=== PATIENT | female | born 1955 | race Caucasian/White ===

== ENCOUNTER 2017-10-26 15:31 | Outpatient (CLI) | payer BC ==
--- NOTE | 2017-10-27 17:44 | EKG ---
Test Reason : Blood Pressure : / mmHG Vent. Rate : 080 BPM Atrial Rate : 080 BPM P-R Int : 174 ms QRS Dur : 098 ms QT Int : 388 ms P-R-T Axes : 046 -05 020 degrees QTc Int : 447 ms Normal sinus rhythm Minimal voltage criteria for LVH, may be normal variant Borderline ECG When compared with ECG of 20-JAN-2017 11:05, No significant change was found Confirmed by DR. Niya TOLENTINO ([id number]) on 10/27/2017 5:43:42 PM Referred By: PRISCILLA Confirmed By:DR. Niya TOLENTINO
== END 2017-10-26 15:32 | disposition home or self-care (01) ==
LOC: LABBT 15:31
PROVIDERS: ATTEND Neurological Surgery
DX: Z01.812 Encounter for preprocedural laboratory examination (principal); M47.22 Other spondylosis with radiculopathy, cervical region
CPT/HCPCS: 93005; 93010

== ENCOUNTER 2018-02-15 10:53 | Inpatient (IN) | payer BC ==
[2018-02-15 11:20] VITALS: BMI 23.6
[2018-02-15] MEDS ORDERED: HYDROcodone/Acetaminophen 10/325 mg Tablet PO PRN ×2 (11:42→16:58)
[2018-02-15] MEDS ORDERED: Dextrose 5 % And 0.9 % NaCl 1,000 ML IV SCH (11:45)
[2018-02-15 12:38] LABS: ALT (SGPT) 13 U/L (8-55); AST (SGOT) 15 U/L (5-34); Albumin 3.9 g/dL (3.5-5.0); Alkaline Phosphatase 115 U/L (40-150); Anion Gap 12 mmol/L (10-20); BUN (Urea Nitrogen) 7 mg/dL (9.8-20.1); Bilirubin, Total 0.4 mg/dL (0.2-1.2); Calc. Creatinine Clearance 90 mL/min (70-130); Calcium 9.6 mg/dL (7.8-10.44); Carbon Dioxide 24 mmol/L (22-29); Chloride 106 mmol/L (98-107); Estimated GFR-MDRD 80; Globulin 4.5 g/dL (2.4-3.5); Glucose 112 mg/dL (70-105); Protein, Total 8.4 g/dL (6.0-8.3); Sodium 139 mmol/L (136-145)
[2018-02-15 12:59] LABS: #Lymphocytes 1.2 thou/uL (1.20-3.40); #Monocytes 0.2 thou/uL (0.11-0.59); #Neutrophils 10.8 thou/uL (1.40-6.50); %Basophils 0.2 % (0.0-1.0); %Eosinophils 0.1 % (0.0-10.0); %Lymphocytes 9.7 % (21.0-51.0); %Monocytes 1.9 % (0.0-10.0); %Neutrophils 88.2 % (42.0-75.0); Hemoglobin 9.7 g/dL (12.0-16.0); Hypochromia SLIGHT = 6-15 cells (100X) (0-5/hpf); MDiff Complete? YES; Mean Corpuscular HGB CONC 29.3 g/dL (32.0-36.0); Mean Corpuscular Hemoglobin 23.1 pg (27.0-31.0); Mean Corpuscular Volume 79.1 fL (78.0-98.0); Mean Platelet Volume 6.8 fL (7.4-10.4); Microcytosis SLIGHT = 6-15 cells (100X) (0-5/hpf); PLT Morphology Comment Appears Increased; Platelet Count 531 thou/uL (130-400); Polychromasia SLIGHT = 2-3 cells (100X) (0-2/hpf); RBC Distribution Width 17.8 % (11.5-14.5); White Blood Cell (WBC) Count 12.3 thou/uL (4.8-10.8)
[2018-02-15] MEDS: Pregabalin 50 MG CAP PO SCH ×2 (15:01→20:55)
[2018-02-15] MEDS: HYDROcodone/Acetaminophen 10/325 mg Tablet PO PRN ×2 (17:08→21:03)
[2018-02-15] MEDS: D5 NS w/ 40 mEq KCl 1,000 ML IV SCH (20:55)
[2018-02-15] MEDS: Pantoprazole 40 MG VIAL IVP SCH (20:55)
[2018-02-15] MEDS: Promethazine HCl 25 MG/ML VIAL IM/IV PRN (22:25)
[2018-02-16] MEDS: HYDROcodone/Acetaminophen 10/325 mg Tablet PO PRN ×5 (01:43→20:16)
--- NOTE | 2018-02-16 02:18 | HP ---
DATE OF ADMISSION: 02/15/2018 HISTORY OF PRESENT ILLNESS: Patient is a 62-year-old female who has a long history of Croh n's disease. Patient underwent a colonoscopy in 05/2017 for her Crohn's disease. This showed inflam mation from the anal area to the terminal ileum. These are notably worsen from prior colonoscopy, 5 years before. She was seen in June at that time and started on Stelara. She initially seemed t o be doing better, was again seen in July and her pain had resolved. She returned to [place] in [place] again nausea and vomiting with pain in the stomach and rectum having 4 bowel movements per day. She was having a large amount of blood and clots. She underwent a laboratory and a CT in October of is year. It appears that has not been performed. She was started on steroids as an outpatient and h er azathioprine, which has been stopped for her impending neck surgery was restarted. None of these problems has helped her ongoing symptoms. Before today, she was last seen on 02/02/2018 that time annabelle jones reported 20-pound weight loss, 4-6 stools per day, bleeding, and anorectal pain. She did undergo a rectal exam by our physician's editorial assistant to rule out impaction. Today, she returned with similar co mplaints. LABORATORY DATA: On the showed a hemoglobin of 8.4, hematocrit 27.4 with MCV of 74.3, platelet co unts are 414. C-reactive protein was 0.8. Comprehensive metabolic panel was essentially normal. Se dimentation rate was 93. Stelara antibodies showed no antibodies in October of fecal calprotectin show ed a high level of 85. Vitamin B12 was normal. Vitamin D was low at 18. Urinalysis showed 5-10 wbc 's with trace bacteria. Back in October, her hemoglobin was 11.4. Vitamin B12 level at that time was less than 150 and vitamin D level was 6. In May, QuantiFERON gold was negative. PAST MEDICAL HISTORY: Includes hypertension, chronic lower back pain, neck pain with impending cervi anish spine surgery. PAST MEDICAL HISTORY: Includes nerve stimulation, , neuropathy. SOCIAL HISTORY: Occasional alcohol. She is a former smoker, two children. FAMILY HISTORY: Negative for colon cancer. MEDICATIONS: Include azathioprine 100 mg p.o. daily, prednisone 10 mg p.o. daily with taper Stelara 90 mg once every 8 weeks, vitamin B12 of 1000 mcg with oral disintegrating tablet every week, vitamin D 5000 units every day, hydrocodone 10/325 two p.o. daily, ranitidine 150 mg p.o. b.i.d., isosorbide mononitrate 30 mg 1/2 p.o. daily, ProAir 90 mcg daily, losartan 50 mg p.o. daily, amlodipine 5 mg p. o. daily, Lyrica 50 mg p.o. t.i.d. ALLERGIES: Include ASPIRIN, CODEINE, DEMEROL, MORPHINE. REVIEW OF SYSTEMS: Noncontributory. PHYSICAL EXAMINATION: GENERAL: She has an ill-appearing, pale female in no acute distress. VITAL SIGNS: Temperature 98.0, pulse is 78, respiratory rate 16, blood pressure 136/92, weight is 16 1 pounds comparing this to October, she was 175 pounds and has been maintained at 175 pounds. HEENT: Shows dry mucous membranes. NECK: Supple. CHEST: Clear. CARDIOVASCULAR: Regular rate and rhythm. ABDOMEN: Diffusely tender with some guarding. Bowel sounds are present. RECTAL: Deferred. EXTREMITIES: Normal. NEUROLOGIC: Nonfocal. LABORATORY DATA AND X-RAY FINDINGS: Shows a potassium of 3.0, glucose 112, total protein 84, globuli n 4.5. CBC shows a hemoglobin of 9.7, hematocrit 33.2, MCV of 79, white blood cell count of 12.3. ASSESSMENT: 1. A 62-year-old female with a long history of Crohn's disease now with ongoing exacerbati on, not responsive to chronic Stelara use, azathioprine, and recent steroids. 2. Dehydration. 3. Anemia secondary to gastrointestinal blood loss. 4. Gastrointestinal bleeding - Assume this is secondary to Crohn's. 5. Hypertension. 6. Hypokalemia. RECOMMENDATIONS: 1. IV fluids. 2. IV steroids. 3. Continue azathioprine. 4. CT abdomen. 5. Patient may need further consultation with a subspecialist such as Dragan Askew about her Crohn' s disease.
[2018-02-16 05:51] LABS: Anion Gap 11 mmol/L (10-20); BUN (Urea Nitrogen) 5 mg/dL (9.8-20.1); Calc. Creatinine Clearance 104 mL/min (70-130); Calcium 9.4 mg/dL (7.8-10.44); Carbon Dioxide 23 mmol/L (22-29); Chloride 107 mmol/L (98-107); Estimated GFR-MDRD Greater than 90; Glucose 102 mg/dL (70-105); Potassium 3.4 mmol/L (3.5-5.1); Sodium 138 mmol/L (136-145)
[2018-02-16] MEDS: D5 NS w/ 40 mEq KCl 1,000 ML IV SCH ×2 (06:35→15:22)
[2018-02-16 06:57] LABS: Hemoglobin 9.8 g/dL (12.0-16.0); Mean Corpuscular HGB CONC 30.4 g/dL (32.0-36.0); Mean Corpuscular Hemoglobin 24.4 pg (27.0-31.0); Mean Corpuscular Volume 80.1 fL (78.0-98.0); Mean Platelet Volume 7.6 fL (7.4-10.4); Platelet Count 455 thou/uL (130-400); RBC Distribution Width 18.2 % (11.5-14.5); Red Blood Cell (RBC) Count 4.01 mill/uL (4.20-5.40)
[2018-02-16 06:58] LABS: #Lymphocytes 2.3 thou/uL (1.20-3.40); #Monocytes 0.9 thou/uL (0.11-0.59); #Neutrophils 10.8 thou/uL (1.40-6.50); %Basophils 0.3 % (0.0-1.0); %Eosinophils 0.2 % (0.0-10.0); %Lymphocytes 16.2 % (21.0-51.0); %Monocytes 6.7 % (0.0-10.0); %Neutrophils 76.6 % (42.0-75.0)
[2018-02-16 07:42] LABS: Hypochromia SLIGHT = 6-15 cells (100X) (0-5/hpf); Lymphocytes 22 % (21-51); MDiff Complete? YES; Monocytes 5 % (0-10); Neutrophil 73 % (42-75); PLT Morphology Comment Appears Increased; Polychromasia SLIGHT = 2-3 cells (100X) (0-2/hpf); Small Platelets SLIGHT
[2018-02-16] MEDS: Pregabalin 50 MG CAP PO SCH ×3 (08:20→20:16)
[2018-02-16] MEDS: Losartan 25 MG TAB PO SCH (08:20)
[2018-02-16] MEDS: azaTHIOprine 50 MG TAB PO SCH (08:21)
[2018-02-16] MEDS: Amlodipine 5 MG TAB PO SCH (08:21)
[2018-02-16] MEDS: Pantoprazole 40 MG VIAL IVP SCH ×2 (08:22→20:17)
[2018-02-16] MEDS ORDERED: Losartan 25 MG TAB PO SCH (09:00)
[2018-02-16] MEDS: Promethazine HCl 25 MG/ML VIAL IM/IV PRN ×2 (09:18→21:09)
--- NOTE | 2018-02-16 11:15 | CT ---
CT OF THE ABDOMEN AND PELVIS WITH CONTRAST: COMPARISON: 06/30/06. HISTORY: Crohn's disease with abdominal pain. TECHNIQUE: Multiple contiguous axial images were obtained in a CT of the abdomen and pelvis with contrast. P.o. contrast was administered. Coronal reformats were performed. FINDINGS: There are hypodensities in the bilateral kidneys measuring up to 11 mm in size which represent cysts. There is a small nonobstructing calcification I the right kidney measuring 2 mm in size. There is a cyst in the left lobe of the liver. Hypodensity adjacent to the falciform ligament likely represen ts a small amount of focal fatty infiltration in the liver. The gallbladder, adrenal glands, and messina creas are unremarkable. Calcifications in the spine are likely from prior granulomatous disease. No free air, free fluid, or stranding changes are seen in the abdomen or pelvis. The patient is stat us post hysterectomy. There are mildly enlarged loops of small bowel without significant transition point. The contrast passes through these mildly enlarged bowel loops in the colon. No definite thic kening of the terminal ileum is seen. The colon is unremarkable. No abdominal or pelvic lymphadenopathy are seen. Atherosclerotic calcifications are seen in the aort a. Degenerative changes are seen in the spine. The visualized inferior thorax shows calcified granuloma s in the right hilar region. A spinal stimulation device is seen with its tip at the T10 level. IMPRESSION: 1. No evidence of acute intraabdominal/pelvic abnormality. 2. Bilateral renal cysts. 3. Nonobstructing right renal calcification. POS: [facility]
--- NOTE | 2018-02-16 16:12 | PRG ---
DATE OF SERVICE: 02/16/2018 SUBJECTIVE: The patient is feeling slightly better. She still complains of rectal pain. She has gandhi d no nausea or vomiting. OBJECTIVE: VITAL SIGNS: Temperature 97.8, pulse 88, respiratory rate 16, blood pressure 127/75. CHEST: Clear. CARDIOVASCULAR: Regular rate and rhythm. ABDOMEN: Soft and nontender without organomegaly or masses. LABORATORY DATA: Shows a potassium of 3.4 and BUN of 5. CBC shows a white blood cell count 14.0, he moglobin 9.8, hematocrit 32.1, platelet count 455. Stool for C. difficile are negative. CT of the a bdomen and pelvis showed no significant abnormalities. ASSESSMENT: 1. Crohn's colitis. 2. Anal and rectal pain. 3. Hypokalemia. 4. Anemia secondary to gastrointestinal blood loss. 5. Malfunctioning MediPort. RECOMMENDATIONS: 1. Dr. Moisés Araya input into MediPort. 2. Flex sig tomorrow. 3. Continue IV steroids.
[2018-02-16] MEDS ORDERED: cefOXitin 2 GM in Sodium Chloride 0.9% 100 ML IVPB SCH (17:15)
[2018-02-16] MEDS ORDERED: Magnesium Citrate 300 ML BOT PO SCH (18:00)
[2018-02-16] MEDS ORDERED: Clindamycin/D5W 900 MG in Premix Bag 1 BAG IVPB SCH (19:00)
--- NOTE | 2018-02-16 21:25 | CON ---
DATE OF CONSULTATION: 02/16/2018 CHIEF COMPLAINT: Poor IV access, dysfunctional MediPort. HISTORY: She is a 62-year-old female who has had cold Crohn disease for many years. She has lost IV access and she had a MediPort placed many years ago. She never had it flushed and so no longer work s, but she comes to the hospital frequently. She has been out of the state for a while. I was asked to see her to remove the old MediPort and place a new one. PAST MEDICAL HISTORY: Significant for hypertension, back pain, neck pain, as well as Crohn disease. PAST SURGICAL HISTORY: She has had nerve stimulator, section. MEDICATIONS: Include azathioprine, prednisone, Stelara, vitamin B12, vitamin D, hydrocodone, ranitid ine, Isordil, ProAir, losartan, amlodipine, Lyrica. ALLERGIES: ASPIRIN, CODEINE, DEMEROL, and MORPHINE. SOCIAL HISTORY: Occasional alcohol. Former smoker, 2 children. FAMILY HISTORY: No colon cancer. PHYSICAL EXAMINATION: VITAL SIGNS: Temperature 98.2, pulse 88, blood pressure 129/77. GENERAL: Well-developed, well-nourished female, in no apparent distress. HEENT: Unremarkable. LUNGS: Clear. HEART: Regular rate and rhythm. CHEST: She has got a MediPort on the far left side of her breasts that they have tried access and ca nnot get any blood return or infuse any fluid. ASSESSMENT: Dysfunctional MediPort. PLAN: Removal and replacement of MediPort. CONSENT: I discussed the planned procedure as well as risk of bleeding, infection, injury to pneumot horax. She understands she needs to have this flushed at least once a month. She gives her informed consent.
[2018-02-17] MEDS: D5 NS w/ 40 mEq KCl 1,000 ML IV SCH ×2 (02:26→10:59)
[2018-02-17] MEDS: HYDROcodone/Acetaminophen 10/325 mg Tablet PO PRN ×4 (05:53→19:23)
[2018-02-17 06:05] LABS: Anion Gap 11 mmol/L (10-20); BUN (Urea Nitrogen) 5 mg/dL (9.8-20.1); Calc. Creatinine Clearance 105 mL/min (70-130); Calcium 9.2 mg/dL (7.8-10.44); Carbon Dioxide 24 mmol/L (22-29); Chloride 109 mmol/L (98-107); Estimated GFR-MDRD Greater than 90; Glucose 107 mg/dL (70-105); Potassium 3.8 mmol/L (3.5-5.1); Sodium 140 mmol/L (136-145)
[2018-02-17] MEDS ORDERED: Bupivacaine/Epinephrine 0.25% 30 ML VIAL ONE ×2 (06:52→09:23)
[2018-02-17] MEDS ORDERED: Lidocaine 2% 10 ML INJ ONE ×2 (06:52→09:23)
[2018-02-17] MEDS ORDERED: Midazolam HCl 2 mg/2 ml Vial ONE (07:00)
[2018-02-17] MEDS ORDERED: Propofol 1,000 MG/100 ML VIAL IV ONE (07:00)
[2018-02-17] MEDS ORDERED: Fentanyl 100 MCG/2 ML VIAL ONE ×2 (07:00→10:04)
[2018-02-17] MEDS ORDERED: Ondansetron HCl/PF 4 MG/2 ML Vial ONE (07:15)
[2018-02-17] MEDS ORDERED: Clindamycin/D5W 900 mg/50 ml Premix Bag ONE (08:02)
--- NOTE | 2018-02-17 09:16 | PQF ---
CLINICAL DOCUMENTATION IMPROVEMENT CLARIFICATION FORM: ICD-10 Updated PLEASE DO AN ADDENDUM TO THE PROGRESS NOTE WITH ANY DOCUMENTATION UPDATES OR ADDITIONS AND CARRY THROUGH TO DC SUMMARY. THANK YOU. DATE: 02/17 ATTN: DR. CONNER PACHECO Please exercise your independent, professional judgment in responding to the clarification form. Clinical indicators are provided on the bottom of this form for your review. Please check appropriate box(s): [ ] Acute blood loss anemia [ ] Chronic Anemia: [ ] Blood loss [ ] Simple [ ] Due to Vitamin B12 deficiency [ ] Other [ ] Anemia of Chronic Disease (please specify) [ ] Other diagnosis [ ] Unable to determine For continuity of documentation, please document condition throughout progress notes and discharge summary. Thank You. CLINICAL INDICATORS - SIGNS / SYMPTOMS / LABS H/H: 9.7/33.2 (02/15) 9.8/32.1 (02/16) PHYSICIAN H&P 02/15: ASSESSMENT: 3) ANEMIA 2/2 GI BLOOD LOSS; 4) GI BLEEDING - ASSUME THIS IS SECONDARY TO CROHN'S PHYSICIAN PN 02/16: ASSESSMENT: 4) ANEMIA 2/2 GI BLOOD LOSS RISK FACTOR: CROHN'S COLITIS EXACERBATION TREATMENT: IVF (D5 NS W/40 MEQ KCL 02/15 - PRESENT) THANK YOU! [employer] (This form is maintained as a part of the permanent medical record) 2014 [employer]. All Rights Reserved [employer]ys Ferreira RN, BSN [email or web address] Office: [phone] [facility]
[2018-02-17] MEDS ORDERED: Ondansetron HCl/PF 4 MG/2 ML Vial IVP PRN (10:00)
[2018-02-17] MEDS ORDERED: Promethazine HCl 25 MG/ML VIAL IM PRN (10:00)
[2018-02-17] MEDS ORDERED: Promethazine HCl 25 MG/ML VIAL SLOW IVP PRN (10:00)
--- NOTE | 2018-02-17 10:05 | OP ---
DATE OF PROCEDURE: 02/17/2018 PROCEDURE PERFORMED: Flexible sigmoidoscopy with biopsies. INDICATION FOR PROCEDURE: History of Crohn's disease, rectal pain. DESCRIPTION OF PROCEDURE: After the risks and benefits of the procedure were explained to the patien t including risk of bleeding, infection, perforation, reaction to anesthesia and/or pain, informed co nsent was obtained. The patient was then taken to the operating room where deep sedation was adminis tered via propofol and anesthesia support. Once adequate sedation was achieved, the standard colonos cope was introduced into the rectum after an external examination and advanced to the surgical anasto mosis. The scope was then slowly withdrawn with the findings listed below. The quality of the prep was fair with adequate visualization of the colonic mucosa. The patient tolerated the procedure well with no immediate perioperative complications. FINDINGS: Digital rectal examination: Normal external examination; however, nodularity of the mucosa was palpa june on digital rectal exam. Colon findings: A surgical anastomosis was encountered at approximately 80 cm past the anal verge th at appeared slightly erythematous with minimal inflammation and a polypoid appearance at the actual s germán itself or lumen itself. Otherwise, there was no evidence of erosions, ulcerations, or increased inflammation surrounding the anastomosis. Multiple biopsies were taken for evaluation. Otherwise, the remainder of the colon appeared fairly normal with mild granularity to the mucosa, but there was no inflammation, erosions, ulcerations, loss of haustra or loss of vascularity. This normal appearin g mucosa was seen in the distal transverse, descending, sigmoid colon, and proximal rectum. Multiple biopsies were taken every 10 cm starting at 60 cm in a 4 quadrant fashion with biopsies taken at 60 cm, 40 cm, 30 cm, 20 cm, and 10 cm for surveillance of this region. However, in the rectum just prox imal to the anal canal, there were multiple small 1-2 mm cratered ulcerations with minimal surroundin g erythema. Multiple biopsies were taken of both the edge of the ulcers as well as the center of the ulcers for evaluation and possible presence of cytomegalovirus or herpes simplex virus. There was a lso mild nodularity and polypoid appearance of the mucosa immediately surrounding the anal canal, whi ch was also biopsied. Minimal inflammation of the anal canal was also seen with multiple hypertrophi ed anal papillae. They did appear erythematous as well. IMPRESSION: 1. Surgical anastomosis encountered at 80 cm with minimal inflammation, status post biopsies. 2. The majority of the colonic mucosa visualized today and consistent with quiescent Crohn's disease , status post surveillance biopsies. 3. Multiple small 1-2 mm cratered ulcerations in the rectum concerning for viral infection status po st biopsies. 4. Mild inflammation of the anal canal with multiple erythematous hypertrophied anal papillae (most likely the source of the patient's rectal pain). RECOMMENDATIONS: 1. We would continue current immunosuppressive regimen including azathioprine 100 mg daily, as well as biologic therapy with Stelara. 2. Also agree with a methylprednisolone burst taper for management of the disease. 3. We will follow up on the biopsies and if positive for viral infection, we will treat as necessary . 4. We would avoid constipation as this could potentially exacerbate the patient's rectal pain. 5. Pain control per primary team. We will continue to follow. Please call with any questions.
[2018-02-17] MEDS ORDERED: PROPOFOL 200 MG/20 ML VIAL ONE (10:24)
[2018-02-17] MEDS ORDERED: Lidocaine 1% PF 5 ML VIAL ONE (10:24)
[2018-02-17] MEDS: azaTHIOprine 50 MG TAB PO SCH ×2 (10:25→10:55)
[2018-02-17] MEDS: Losartan 25 MG TAB PO SCH ×2 (10:25→10:56)
[2018-02-17] MEDS: Amlodipine 5 MG TAB PO SCH ×2 (10:25→10:55)
[2018-02-17] MEDS: Pantoprazole 40 MG VIAL IVP SCH ×2 (10:26→21:44)
[2018-02-17] MEDS: Pregabalin 50 MG CAP PO SCH ×4 (10:26→21:43)
--- NOTE | 2018-02-17 11:18 | OP ---
DATE OF PROCEDURE: 02/17/2018 PREOPERATIVE DIAGNOSES: Crohn's disease, lack of IV access, dysfunctional MediPort. SURGEON: Moisés Araya M.D. PROCEDURE PERFORMED: Placement of right internal jugular MediPort removal of left subclavian MediPor t. INDICATIONS: The patient is a 62-year-old female with longstanding Crohn's disease, multiple hospita lizations, has no peripheral IV access and her MediPort is clotted off. FINDINGS: I attempted a right subclavian access and hit the artery. I was not able to find good panchito ous access in subclavian area. Good backflow of venous blood. J-wire threaded easily on right IJ. On the left, the MediPort was difficult where actually tubing was very difficult to come out. It req uired excessive pressure, required a counter incision, placement of a wire to get it out. PROCEDURE IN DETAIL: After informed consent was obtained, the patient was taken to the operating madhu m and given total IV anesthesia. She was placed in the Trendelenburg position. Her chest and neck w ere prepped and draped in usual fashion. Local anesthesia infiltrated subcutaneously and deep. Intr oducer needle was inserted to right subclavian and got an arterial stick, held pressure, attempted a second time and got a second arterial stick. Aborted this procedure, held pressure, went to the neck , local anesthesia was infiltrated subcutaneously and deep, and I got good backflow of venous blood. J-wire threaded easily. Then, the skin was anesthetized with local anesthesia. Transverse incision performed. Subcu divided sharply and a pocket created on the right chest wall. Then, a tunneling d evice was used to connect the two incisions and the catheter brought through the tunnel. The cathete r was attached to the MediPort. MediPort was then sutured to the pectoralis fascia with interrupted 2-0 Prolene suture. The MediPort was accessed with Radford needle and flushed with heparinized saline. The catheter was cut to size and the peel-away introducer inserted over the wire. After fluoroscop y documented, the wire was in the right spot and the wire then removed. The catheter inserted throug h the peel-away introducer and the peel-away introducer removed. Subcu was closed with interrupted 3 -0 Vicryl. The system accessed good backflow of venous blood and flushed with heparinized saline. T moriah skin closed with a running subcuticular 4-0 Rapide. Dermabond applied. Then, local anesthesia in filtrated subcutaneously and deep on the left. An incision made through the old scar. The old MediP ort was dissected out. Sutures removed and was able to remove about 3 inches of the tubing, but it w as firmly attached and now it started to require excessive force to try and move this catheter which is highly unusual as this is made of silicone. So, I repeated the fluoroscopy and one tied around th e other tubing or any, this was in subclavian area, tried dissecting it out with a hemostat. I had t o make a counter incision to access it just subclavian, then pulled the catheter through the skin, th readed the J wire through it and then with just gentle steady pressure, I was able to get it out, but there was a kind of sudden give at the end. So, I did repeat another fluoroscopy. At this point, I did not see any retained foreign body, could not feel any retained foreign body. The catheter size looked appropriate as though we got it all out. Hemostasis achieved. Subcu reapproximated with inte rrupted 3-0 Vicryl. Skin closed with a running subcuticular 4-0 Rapide. Dermabond applied. The pat ient tolerated the procedure well and transferred to recovery in good condition. Sponge and needle c ount verified correct x2.
--- NOTE | 2018-02-17 11:50 | RAD ---
PORTABLE CHEST: Date: 02/17/18 INDICATION: MediPort placement. COMPARISON: 05/09/15. FINDINGS/IMPRESSION: Previous exam revealed a left subclavian MediPort catheter which has been removed. A right MediPort catheter is now in place via the right jugular. The tip overlies the SVC. The lungs are clear. No pneumothorax, infiltrate, or other acute process identified. POS: [facility]
[2018-02-17] MEDS: Promethazine HCl 25 MG/ML VIAL IM/IV PRN (12:34)
[2018-02-18] MEDS: HYDROcodone/Acetaminophen 10/325 mg Tablet PO PRN ×6 (00:06→21:17)
[2018-02-18] MEDS: D5 NS w/ 40 mEq KCl 1,000 ML IV SCH ×2 (06:15→17:35)
[2018-02-18] MEDS: azaTHIOprine 50 MG TAB PO SCH (08:37)
[2018-02-18] MEDS: Pregabalin 50 MG CAP PO SCH ×3 (08:37→21:17)
[2018-02-18] MEDS: Promethazine HCl 25 MG/ML VIAL IM/IV PRN (08:38)
[2018-02-18] MEDS: Losartan 25 MG TAB PO SCH (08:38)
[2018-02-18] MEDS: Pantoprazole 40 MG VIAL IVP SCH ×2 (08:38→21:16)
[2018-02-18] MEDS: Amlodipine 5 MG TAB PO SCH (08:38)
--- NOTE | 2018-02-18 16:13 | PRG ---
DATE OF SERVICE: 02/18/2018 REASON FOR CONSULTATION: Crohn disease. SUBJECTIVE: The patient states that she is feeling better today with lessened diarrhea when compared to previous, although she does continue to have increased rectal pain primarily with defecation. Cu rrently denies any nausea, vomiting, fevers, chills, abdominal pain, dysphagia, odynophagia, new rash es, new joint pains, changes in vision or constipation. PHYSICAL EXAMINATION: VITAL SIGNS: Temperature 97.7, pulse 85, blood pressure 162/95, respiratory rate 16, satting 98% on room air. GENERAL: The patient lying in bed, in no acute distress, alert and oriented x4. CARDIOVASCULAR: Regular rate and rhythm. PULMONARY: Clear to auscultation bilaterally. ABDOMEN: Normoactive bowel sounds, soft, nontender, nondistended. EXTREMITIES: No cyanosis, clubbing or edema. LABORATORY DATA: No current studies available for review. IMAGING DATA: Patient underwent flexible sigmoidoscopy on 02/17/2018 which showed the presence of qu iescent Crohn disease within the distal to approximately 80 cm past the anal verge; however, did show small ulcerations within the rectal vault just proximal to the anal canal concerning for possible vi ral ASSESSMENT AND PLAN: The patient is a 62-year-old female with past medical history of Crohn disease, currently on immunosuppressant medications, presenting with possible flare of her Crohn disease. Th e patient has a longstanding history of Crohn disease that has been treated with multiple modalities in the past including Humira, immune modulators as well as mesalamine with diminishing returns with t hese treatment regimens. More recently, she had been placed on Stelara as part of biologic therapy i n addition to continuation of azathioprine 100 mg daily. She was doing well on this regimen initiall y, but started having increased frequency of liquid bowel movements, concerning for flares. She dilma berrios underwent a flexible sigmoidoscopy on 02/17/2018 which showed fairly quiescent disease up to 8 0 cm past the anal verge, but biopsies are still pending at this time to include any histologic infla mmation. She did, however, show some small 1-2 mm ulcerations within the rectal vault just proximal to the anal canal concerning for possible cytomegalovirus or HSV infection. RECOMMENDATIONS: 1. Would continue current immunosuppressive regimen including azathioprine 100 mg daily, as well as biologic therapy with Stivarga. 2. Agree with methylprednisolone administration for now with her steroids on discharge. 3. We will follow up on the biopsies and if positive for viral infection, would place the patient on antiviral medications. 4. Pain control per primary team. We will continue to follow. Please call with any questions.
[2018-02-19] MEDS: D5 NS w/ 40 mEq KCl 1,000 ML IV SCH ×2 (01:33→11:39)
[2018-02-19] MEDS: HYDROcodone/Acetaminophen 10/325 mg Tablet PO PRN ×3 (01:33→10:33)
[2018-02-19 04:23] LABS: #Lymphocytes 0.8 thou/uL (1.20-3.40); #Monocytes 0.4 thou/uL (0.11-0.59); #Neutrophils 8.1 thou/uL (1.40-6.50); %Eosinophils 0.1 % (0.0-10.0); %Monocytes 4.2 % (0.0-10.0); %Neutrophils 86.7 % (42.0-75.0); Hemoglobin 9.1 g/dL (12.0-16.0); Mean Corpuscular HGB CONC 30.1 g/dL (32.0-36.0); Mean Corpuscular Hemoglobin 24.4 pg (27.0-31.0); Mean Platelet Volume 6.7 fL (7.4-10.4); Platelet Count 410 thou/uL (130-400); RBC Distribution Width 18.7 % (11.5-14.5); Red Blood Cell (RBC) Count 3.72 mill/uL (4.20-5.40); White Blood Cell (WBC) Count 9.4 thou/uL (4.8-10.8)
[2018-02-19 04:41] LABS: ALT (SGPT) 15 U/L (8-55); AST (SGOT) 20 U/L (5-34); Albumin 3.5 g/dL (3.5-5.0); Alkaline Phosphatase 96 U/L (40-150); Anion Gap 10 mmol/L (10-20); BUN (Urea Nitrogen) 5 mg/dL (9.8-20.1); Bilirubin, Total 0.4 mg/dL (0.2-1.2); CRP (Inflammatory) Less than 0.50 mg/dL (= or < 0.5); Calc. Creatinine Clearance 109 mL/min (70-130); Carbon Dioxide 24 mmol/L (22-29); Chloride 110 mmol/L (98-107); Estimated GFR-MDRD Greater than 90; Globulin 3.6 g/dL (2.4-3.5); Glucose 108 mg/dL (70-105); Potassium 4.4 mmol/L (3.5-5.1); Protein, Total 7.1 g/dL (6.0-8.3); Sodium 140 mmol/L (136-145)
[2018-02-19] MEDS: azaTHIOprine 50 MG TAB PO SCH (08:52)
[2018-02-19] MEDS: Amlodipine 5 MG TAB PO SCH (08:53)
[2018-02-19] MEDS: Losartan 25 MG TAB PO SCH (08:54)
[2018-02-19] MEDS: Pregabalin 50 MG CAP PO SCH (08:55)
[2018-02-19] MEDS: Pantoprazole 40 MG VIAL IVP SCH (08:55)
[2018-02-19] MEDS: Promethazine HCl 25 MG/ML VIAL IM/IV PRN (08:56)
[2018-02-19 11:21] VITALS: BP 173/98; TEMP 98
--- NOTE | 2018-02-19 18:16 | DIS ---
DATE OF ADMISSION: 02/15/2018 DATE OF DISCHARGE: 02/19/2018 REASON FOR ADMISSION: Possible exacerbation of her Crohn's disease, placement of MediPort. HOSPITAL COURSE: The patient is a 62-year-old female with a past medical history of Crohn's disease that has been present for the last 20-30 years. Since 05/2017, she had been having worsening symptom s characterizes abdominal pain, diarrhea, and hematochezia for which she underwent colonoscopy. This colonoscopy showed inflammation from the anal area to the terminal ileum, which was worsening from a n endoscopic standpoint from her prior colonoscopy which was 5 years before. She was ultimately star june on Stelara at that time and seemed to be doing better, but again started having increased nausea and vomiting, abdominal pain, and hematochezia in 09/2017. She was seen in clinic on 02/02/2018 with symptoms at that time being a 20-pound weight loss, approximately 4-6 semi-solid to liquid stools pe r day, increased anorectal pain and hematochezia, which then helped prompt admission to the hospital for more expedited evaluation. During this hospitalization with her worsening symptoms, she was plac ed on IV steroids for better efficacy with this particular medication, but she also underwent a flexi ble sigmoidoscopy on 02/17/2018 for evaluation of the colonic mucosa. During this procedure, she had fairly normal appearing mucosa with quiescent disease extending from the rectum to 80 cm. However, she did have evidence of multiple small ulcerations within the rectum that were biopsied with biopsy still pending at this time. She was ultimately continued on the IV steroids during this admission wi th improvement of her abdominal pain and no further episodes of hematochezia, although she did contin ue to have rectal pain on discharge. At the time of discharge, she denied any nausea, vomiting, feve rs, chills, abdominal pain, diarrhea, constipation or GI bleeding. At the time of discharge, the anmol n was to continue her on oral steroids at prednisone 30 mg daily, and continue this regimen until she was able to be seen in the GI clinic within 1-2 weeks of discharge for further evaluation and taperi ng of the steroids. During the hospitalization, she was also continued on azathioprine 100 mg daily and should be due for her next dose of Stelara as an outpatient sometime soon. NEW OUTPATIENT MEDICATIONS: Prednisone 30 mg daily, quantity 90 with 10 mg pills. DIET: Regular diet. ACTIVITY: As tolerated. REFERRALS/FOLLOWUP: Would have the patient follow up in the GI clinic within 1-2 weeks of discharge. DISPOSITION: Home.
== END 2018-02-19 12:33 | disposition home or self-care (01) | DRG 386 ==
LOC: SURG A 10:53
PROVIDERS: ADMIT Internal Medicine Gastroenterology; ATTEND Internal Medicine Gastroenterology
PROC: 02HV33Z Insertion of Infusion Device into Superior Vena Cava, Percutaneous Approach (ICD-10-PCS; principal; 2018-02-17)
PROC: 02PY33Z Removal of Infusion Device from Great Vessel, Percutaneous Approach (ICD-10-PCS; 2018-02-17)
PROC: B5181ZA Fluoroscopy of Superior Vena Cava using Low Osmolar Contrast, Guidance (ICD-10-PCS; 2018-02-17)
PROC: 0DBP8ZX Excision of Rectum, Via Natural or Artificial Opening Endoscopic, Diagnostic (ICD-10-PCS; 2018-02-17)
PROC: 0DBE8ZX Excision of Large Intestine, Via Natural or Artificial Opening Endoscopic, Diagnostic (ICD-10-PCS; 2018-02-17)
DX: K50.911 Crohn's disease, unspecified, with rectal bleeding (principal); T82.858A Stenosis of other vascular prosthetic devices, implants and grafts, initial encounter; K62.6 Ulcer of anus and rectum; K62.89 Other specified diseases of anus and rectum; E86.0 Dehydration; I10 Essential (primary) hypertension; E87.6 Hypokalemia; B34.9 Viral infection, unspecified; Y82.8 Other medical devices associated with adverse incidents; D64.9 Anemia, unspecified; Y92.009 Unspecified place in unspecified non-institutional (private) residence as the place of occurrence of the external cause; Z79.899 Other long term (current) drug therapy; Z98.0 Intestinal bypass and anastomosis status
CPT/HCPCS: 36415; 71045; 74177; 80048; 80053; 85025; 85652; 86140; 87324; 87449; 88305; A4216; C1788; C9113; J1642; J2001; J2250; J2405; J2550; J2704; J2920; J3010; J3490; J7500

== ENCOUNTER 2018-03-08 15:22 | Outpatient (CLI) | payer BC | END 2018-03-08 15:23 | disposition home or self-care (01) | LOC: BICRAD 15:22 | PROVIDERS: ATTEND Internal Medicine Gastroenterology | DX: G62.9 Polyneuropathy, unspecified (principal); K50.818 Crohn's disease of both small and large intestine with other complication; R09.89 Other specified symptoms and signs involving the circulatory and respiratory systems | CPT/HCPCS: 70360; 71046 ==

== ENCOUNTER 2018-03-16 17:00 | Outpatient (CLI) | payer BC ==
[2018-03-16 17:23] LABS: Mean Corpuscular HGB CONC 32.3 g/dL (32.0-36.0); Mean Corpuscular Hemoglobin 26.3 pg (27.0-31.0); Mean Corpuscular Volume 81.3 fL (78.0-98.0); Platelet Count 341 thou/uL (130-400); Red Blood Cell (RBC) Count 4.19 mill/uL (4.20-5.40); White Blood Cell (WBC) Count 8.1 thou/uL (4.8-10.8)
[2018-03-16 17:31] LABS: INR-International Normal Ratio 0.9; PTT 28.6 SEC (22.9-36.1); Prothrombin Time 12.1 SEC (12.0-14.7)
== END 2018-03-16 17:01 | disposition home or self-care (01) ==
LOC: LABBT 17:00
PROVIDERS: ATTEND Neurological Surgery
DX: Z01.812 Encounter for preprocedural laboratory examination (principal); M47.22 Other spondylosis with radiculopathy, cervical region
CPT/HCPCS: 85027; 85610; 85730

== ENCOUNTER 2018-03-17 05:42 | Day surgery (SDC) | payer BC ==
[2018-03-16 17:11] VITALS: BMI 22.8
[2018-03-17] MEDS ORDERED: Sodium Chloride 0.9% 10 ML ONE ×2 (06:03→06:18)
[2018-03-17] MEDS ORDERED: Thrombin 5000 UNITS/5 ML VIAL ONE (06:18)
[2018-03-17] MEDS ORDERED: Fentanyl 100 MCG/2 ML VIAL ONE ×4 (06:32→12:10)
[2018-03-17] MEDS ORDERED: Phenylephrine HCL 10 MG/ML VIAL ONE (07:02)
[2018-03-17] MEDS ORDERED: Clindamycin/D5W 900 mg/50 ml Premix Bag ONE ×2 (07:02→14:12)
[2018-03-17] MEDS ORDERED: Levofloxacin 500 mg/D5W 100 ml Premix Bag ONE (07:02)
--- NOTE | 2018-03-17 09:01 | HP ---
NEUROSURGICAL H&P CHIEF COMPLAINT: Neck and arm pain. HISTORY OF PRESENT ILLNESS: Ms. Kyle is a 62-year-old female who presents to our office with neck pain and numbness and tingling in the C7 and C8 dermatomes right greater than left. She has had this pain for about a year and it has gotten progressively worse. Patient states that she has had ulnar release in the elbow bilaterally, tingling in the ulnar nerve distribution, following ulnar nerve surgery for reconstruction. She continued to have neck pain it is very painful, started on the scapula, and there is arm discomfort as well. Patient states that her pain has been worse over the last few months. Facet injections have not helped. There is no overt weakness, but there is radiating pain on the right at C5-6 and on the left more so in C6-7. She does not have any loss of control of her bladder or her legs. REVIEW OF SYSTEMS: A 10-point review of systems has been completed, which is otherwise negative than stated above in the HPI. PAST MEDICAL HISTORY: Hypertension, gastroesophageal reflux disease, stomach ulcer, endometriosis, kidney stones, anemia. PAST SURGICAL HISTORY: Bowel resection, appendectomy, hysterectomy stem implant. FAMILY HISTORY: Father is . Mother is alive with history of migraines and hypertension. Siblings also have migraines. SOCIAL HISTORY: Patient is a former smoker. She smoked for 4 years. She quit in 2014. 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 She is and has 2 children. MEDICATIONS: Patient is taking clonidine, Humira, hydralazine, Imuran, Buhl. ALLERGIES: ASPIRIN, DEMEROL, hallucinations; MORPHINE, hallucinations. OBJECTIVE: EAR, NOSE, THROAT, MOUTH, HEAD: Normocephalic, atraumatic. Hearing is intact. Moist mucous membranes. Trachea is midline. No masses are noted. EYES: Pupils are equal, round, reactive to light. Extraocular movements are intact. Sclerae is not injected, not icteric. PSYCHIATRIC: Normal mood and affect. PULMONARY: Normal work of breathing in room air. CARDIOVASCULAR: Regular rate and rhythm. NEUROLOGIC: Gait and station are normal. Motor exam, mild right deltoid weakness, mild left weakness. Sensory exam: There is no dermatomal sensory loss in C5, C6, C7, C8, or T1. Reflex exam diminished symmetric at the biceps, brachioradialis, and triceps. SPINE: Spurlings more positive on right in C5 and on left. IMAGING: Myelogram foraminal stenosis, right C4-C5, C5-C6, and left C6-C7, all for bone spurs. Flexion, extension is stable. ASSESSMENT AND PLAN: Cervical radiculopathy. She not has offered anterior cervical discectomy and fusion at C4, C5, C6, C7 informed consent. We have discussed indications, risks, benefits, alternatives, and expected results from surgery. The results discussed included, but are not limited to bleeding, infection, CSF leak, nerve damage, weakness, swallowing trouble feeding tube placement, tracheal injury, esophageal injury, vocal cord injury, spinal cord injury, incontinence, paralysis, ventilator dependent, wheelchair dependent, stroke, loss of vision, carotid artery injury, triangular injury, vein injury, hardware malplacement, cardiopulmonary complications of anesthesia or . Long-term complications included but are not limited to hardware failure and degeneration of surrounding disk. The patient states that she understands the risks and is willing to move forward with surgery. MCKAYLA
[2018-03-17] MEDS ORDERED: Albumin 5% 500 ML ONE (10:48)
[2018-03-17] MEDS ORDERED: Rocuronium Bromide 50 MG/5 ML VIAL ONE (10:52)
[2018-03-17] MEDS ORDERED: Promethazine HCl 25 MG/ML VIAL IM/IV PRN (12:19)
[2018-03-17] MEDS ORDERED: Ondansetron HCl/PF 4 MG/2 ML Vial IVP PRN (12:19)
[2018-03-17] MEDS ORDERED: Non-Formulary Medication 1 EACH PO PRN (12:19)
--- NOTE | 2018-03-17 13:22 | OP ---
DATE OF OPERATION: 03/17/2018 NEUROSURGERY OPERATIVE NOTE SURGEON: Tiff Rodney M.D. COMPUTER SYSTEMS CONSULTANT: Noemi Ayala PA-C. PREOPERATIVE INDICATION: Treat pain, prevent neurological deterioration. PREOPERATIVE DIAGNOSES: Cervical intervertebral disk disease with multiple cervical radiculopathies, C4-C5, C5-C6 and C6-C7. POSTOPERATIVE DIAGNOSES: Cervical intervertebral disk disease with multiple cervical radiculopathies , C4-C5, C5-C6 and C6-C7. OPERATIVE PROCEDURE: Anterior cervical diskectomy, intervertebral arthrodesis, placement of interver tebral biomechanical device, anterior cervical plating C4-C5, C5-C6, C6-C7, local morselized autograf t, morselized allograft, operating microscope. PREOPERATIVE MEDICATION: Clindamycin 900 mg IV, Levaquin 500 mg IV. DRAIN NUMBER: Zero. DRAIN TYPE: None. PROCEDURE IN DETAIL: The patient was brought to the operating room. General endotracheal anesthesia was induced. The patient was carefully positioned on the operating table with her head supported by gel-filled donut shaped head rest. The patient had a recent neck procedure on the right side of the neck for jugular venous central access, so we elected to do this case from the left side. Lateral f luoro radiograph was used to plan our incision. The left side of the neck was sterilely prepped and draped. We opened with a 10 blade knife and controlled bleeding with bipolar cautery. We dissected sharply to the platysma and cut this muscle in line with our incision. We continued our dissection m edial to the sternocleidomastoid and lateral to the trachea and esophagus until we arrived at the pre vertebral space. We placed a marker at C5-C6 and took a lateral fluoro radiograph to confirm the lev els upon which we were operating. We then elevated the longus colli muscles off the anterior surface of C4, C5, C6 and C7. We placed self-retaining retractor to visualize from C4-C6 and we placed dist raction pins in those two vertebral bodies. We distracted across the two intervening interspaces. W e incised the interspaces with a 15 blade knife and removed disk contents using curettes and rongeurs . The operating microscope was brought in the field. Under microscopic magnification and using microsurgical techniques, we removed the remainder of the i ntervertebral disk. We accessed the ventral epidural space with a micro curette and using Kerrison r ongeurs, we removed posterior osteophytes and posterior longitudinal ligament from one neural foramen all the way to the other. At C4-C5 and C5-C6, the right-sided neuroforamina were densely compressed and these were well decompressed at the completion of our diskectomy. We then prepared the endplate s for grafting and measured the height of each of the two interspaces to 6 mm. Osteophytes that were removed from the anterior and posterior vertebral bodies were morselized and added to demineralized bone matrix as our bone fusion substrate. Two separate PEEK intervertebral biomechanical devices wer e brought into the field. These were loaded with demineralized bone matrix and morselized autograft and advanced into their respective interspaces under radiographic guidance to the appropriate depth. We then removed the distraction pin from C4 and placed it at C7. We distracted across the C6-C7 int erspace. We placed our lateral retractors to visualize C6-C7. In a similar fashion, we incised the disk space, removed disk contents, accessed the ventral epidural space, removed posterior osteophytes and posterior longitudinal ligament and decompressed across the entire spinal canal. Here, the left -sided neural foramen was compressive and we decompressed that nerve root as well as its counterpart on the right. We then prepared the endplates for grafting and we measured the height of the interspa ce to 7 mm. A 7 mm PEEK graft was brought into the field and loaded with demineralized bone matrix a nd morselized autograft and advanced into the interspace under radiographic guidance to the appropria te depth. We then took the operating microscope out of the field. We removed the anterior osteophyt es from the vertebral bodies until a 48 mm plate could sit flush with the bones. We drilled ship pilot dispatcher ho les through the plate and affixed the plate using 14 mm screws. We used variable angle screws at C4, C5 and C6 and fixed angle screws at C7. We engaged the locking mechanism over each of the 8 screws. AP and lateral fluoro and radiographs confirmed adequate positioning of her instrumentation. We ir rigated copiously with bacitracin irrigation. We closed the wound in anatomic layers and we applied a sterile dressing. This was a clean case and no contamination.
== END 2018-03-17 15:15 | disposition home or self-care (01) ==
LOC: SDC 05:42 → EDSTATUS 09:00 → SDC 15:15
PROVIDERS: ATTEND Neurological Surgery
PROC: 0RG2070 Fusion of 2 or more Cervical Vertebral Joints with Autologous Tissue Substitute, Anterior Approach, Anterior Column, Open Approach (ICD-10-PCS; principal; 2018-03-17)
PROC: 0RB30ZZ Excision of Cervical Vertebral Disc, Open Approach (ICD-10-PCS; principal; 2018-03-17)
PROC: 0RG20A0 Fusion of 2 or more Cervical Vertebral Joints with Interbody Fusion Device, Anterior Approach, Anterior Column, Open Approach (ICD-10-PCS; principal; 2018-03-17)
DX: M50.121 Cervical disc disorder at C4-C5 level with radiculopathy (principal); I10 Essential (primary) hypertension; K21.9 Gastro-esophageal reflux disease without esophagitis; D64.9 Anemia, unspecified; Z87.891 Personal history of nicotine dependence; Z79.899 Other long term (current) drug therapy; Z88.5 Allergy status to narcotic agent; Z88.8 Allergy status to other drugs, medicaments and biological substances
CPT/HCPCS: 76001; 96366; 96374; 96375; A4216; C1713; C1776; J1956; J2370; J3010; J3490; P9045

== ENCOUNTER 2018-05-26 12:47 | Outpatient (CLI) | payer BC ==
--- NOTE | 2018-05-26 14:49 | RAD ---
3 VIEWS CERVICAL SPINE: Date: 05/26/18 HISTORY: Cervical radiculopathy. History of prior neck surgery. Patient complains of neck pain and bilateral a rm numbness and pain. COMPARISON: 12/06/16. FINDINGS: There has been interval postsurgical change related to anterior cervical fusion of the cervical spine with anterior plate and screws transfixing the C4-5, C5-6, and C6-7 levels, with intradiscal prosthe sis seen at these levels. The anterior plate at the level of the C4 vertebral body is not entirely fl ush with the vertebral body. However, no definite hardware complication is appreciated. Vertebral bod y heights are within normal limits. No fracture or subluxation seen. The C1 to cervicothoracic juncti on is seen on the lateral view. Prevertebral soft tissues are within normal limits. There is a right internal jugular vein MediPort catheter noted in place. IMPRESSION: Postsurgical changes related to anterior cervical fusion of the C4 through C7 levels. POS: [facility]
== END 2018-05-26 12:48 | disposition home or self-care (01) ==
LOC: TBSIIMAG 12:47
PROVIDERS: ATTEND Neurological Surgery
DX: M54.12 Radiculopathy, cervical region (principal); M48.02 Spinal stenosis, cervical region; Z98.1 Arthrodesis status
CPT/HCPCS: 72040

== ENCOUNTER 2018-05-30 14:25 | Outpatient (CLI) | payer BC ==
--- NOTE | 2018-05-30 16:32 | CT ---
NONCONTRAST CT LUMBAR SPINE: 05/30/2018 HISTORY: Lumbar spinal stenosis with neurogenic claudication. History of prior lumbar surgery. Pain stimulat ion device in place. COMPARISON: 05/09/2015 FINDINGS: Nonobstructing right renal calculi are again seen. The largest calculus is in the mid portion of the right kidney, measuring approximately 5 mm. Vascular calcifications are seen in the abdominal aorta. There has been interval placement of a dorsum column stimulator device with a single lead entering at the L1-L2 level and ascending within the spine, with the tip located at the T11 vertebral body. Vertebral body heights are within normal limits. No fracture or subluxation is seen. There is left convex scoliosis of the lumbar spine, also present on prior exam. L1-L2: There is minimal disk osteophyte complex, resulting in slight effacement of the ventral aspec t of the thecal sac, without significant narrowing of the central spinal canal. The neural foramina are patent. L2-L3: There is no significant disk bulge or disk herniation. The central spinal canal and neural f oramina are patent. L3-L4: There is no disk bulge or disk herniation. The central spinal canal and neural foramina are patent. L4-L5: There is no significant disk bulge or disk herniation. Minimal facet degenerative changes ar e present, with mild ligamentous thickening. This results in mild mass effect on the posterolateral aspect of the thecal sac, bilaterally, resulting in minimal generalized narrowing of the central spin al canal. The neural foramina are patent. L5-S1: There is minimal disk bulge. The central spinal canal and neural foramina are patent. There has been no significant interval change when compared to the prior study in 2014. IMPRESSION: 1. Minimal degenerative changes in the lumbar spine. There is no significant central canal or neura l foraminal narrowing at any level. 2. No fracture or subluxation involving the lumbar spine. 3. Mild left convex scoliosis of the lumbar spine. 4. Nonobstructing right renal calculi, also seen on prior study. 5. Vascular calcifications. POS: [facility]
== END 2018-05-30 14:26 | disposition home or self-care (01) ==
LOC: BICCT 14:25
PROVIDERS: ATTEND Nurse Practitioner Family
DX: M48.062 Spinal stenosis, lumbar region with neurogenic claudication (principal); M47.896 Other spondylosis, lumbar region; M41.86 Other forms of scoliosis, lumbar region; N20.0 Calculus of kidney; I70.0 Atherosclerosis of aorta
CPT/HCPCS: 72131

== ENCOUNTER 2018-06-15 17:07 | Outpatient (CLI) | payer BC | END 2018-06-15 17:08 | disposition home or self-care (01) | LOC: LABBT 17:07 | PROVIDERS: ATTEND Surgery | DX: Z01.810 Encounter for preprocedural cardiovascular examination (principal); G40.909 Epilepsy, unspecified, not intractable, without status epilepticus | CPT/HCPCS: 93005; 93010 ==

== ENCOUNTER 2018-06-19 05:53 | Day surgery (SDC) | payer BC ==
[2018-06-15 17:23] VITALS: BMI 22.8
[2018-06-19] MEDS ORDERED: CEFAZOLIN/Water 2 GM/20 ML SYRINGE ONE (06:23)
[2018-06-19] MEDS ORDERED: Bupivacaine/Epinephrine 0.25% 30 ML VIAL ONE (06:41)
[2018-06-19] MEDS ORDERED: Bupivacaine HCl 0.5%/Epinephrine 1:200,000/PF 30 ml Vial ONE (06:41)
[2018-06-19] MEDS ORDERED: Midazolam HCl 2 mg/2 ml Vial ONE ×2 (06:42→06:45)
[2018-06-19] MEDS ORDERED: Fentanyl 250 MCG/5 ML VIAL ONE (06:42)
[2018-06-19] MEDS ORDERED: Lidocaine 2% PF 5 ML VIAL ONE (06:43)
[2018-06-19] MEDS ORDERED: Fentanyl 100 MCG/2 ML VIAL ONE ×2 (06:56→09:10)
--- NOTE | 2018-06-19 07:24 | HP ---
CHIEF COMPLAINT: Dysfunctional MediPort. HISTORY: The patient is a 62-year-old female who has multiple medical problems and chronic pain who has lost IV access, has a MediPort that is clotted, here for removal and replacement of MediPort. PAST MEDICAL HISTORY: Significant for hypertension, gastroesophageal reflux, history of ulcers. His tory of endometriosis, kidney stones and anemia. PAST SURGICAL HISTORY: She has had several bowel resections, appendectomy, hysterectomy, stem implan t section x2. MEDICATIONS: ProAir, losartan, amlodipine, ranitidine, promethazine, magnesium, melatonin, Stelara, isosorbide, vitamin B12, D3, azathioprine, Dawson, budesonide, Lyrica. ALLERGIES: ASPIRIN, DEMEROL and MORPHINE. FAMILY HISTORY: Migraine headaches and hypertension. SOCIAL HISTORY: She is . 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 She quit smoking in 2014. PHYSICAL EXAMINATION: GENERAL: Weight 150, height 68 body mass index 22.8. Blood pressure 179/120, heart rate 81. GENERAL: Well-developed, well-nourished female in no apparent distress. HEENT: Unremarkable. LUNGS: Clear. HEART: Regular rate and rhythm. ABDOMEN: Soft, nontender, good bowel sounds. EXTREMITIES: Unremarkable. ASSESSMENT: Dysfunctional MediPort. PLAN: Removal and replacement of MediPort. CONSENT: I have discussed the planned procedure as well as risk of bleeding, infection, pneumothorax that she will need to have this flushed regularly. She understands and gives informed consent.
[2018-06-19] MEDS ORDERED: Levofloxacin 500 mg/D5W 100 ml Premix Bag ONE (07:32)
[2018-06-19 07:37] LABS: #Basophils 0.1 thou/uL (0.0-0.2); #Monocytes 0.7 thou/uL (0.11-0.59); #Neutrophils 3.8 thou/uL (1.40-6.50); %Eosinophils 0.5 % (0.0-10.0); %Neutrophils 57.5 % (42.0-75.0); Hemoglobin 14.9 g/dL (12.0-16.0); Mean Corpuscular HGB CONC 31.6 g/dL (32.0-36.0); Mean Corpuscular Hemoglobin 28.7 pg (27.0-31.0); Mean Corpuscular Volume 90.8 fL (78.0-98.0); Mean Platelet Volume 6.8 fL (7.4-10.4); Platelet Count 290 thou/uL (130-400); RBC Distribution Width 15.1 % (11.5-14.5); White Blood Cell (WBC) Count 6.5 thou/uL (4.8-10.8)
[2018-06-19 07:59] LABS: ALT (SGPT) 9 U/L (8-55); AST (SGOT) 13 U/L (5-34); Albumin 4.1 g/dL (3.5-5.0); Alkaline Phosphatase 124 U/L (40-150); Anion Gap 14 mmol/L (10-20); BUN (Urea Nitrogen) 8 mg/dL (9.8-20.1); Bilirubin, Total 0.5 mg/dL (0.2-1.2); Calc. Creatinine Clearance 87 mL/min (70-130); Calcium 9.8 mg/dL (7.8-10.44); Carbon Dioxide 24 mmol/L (22-29); Chloride 106 mmol/L (98-107); Estimated GFR-MDRD 80; Globulin 4.4 g/dL (2.4-3.5); Glucose 90 mg/dL (70-105); Protein, Total 8.5 g/dL (6.0-8.3); Sodium 140 mmol/L (136-145)
--- NOTE | 2018-06-19 10:29 | RAD ---
SINGLE VIEW OF THE CHEST: Comparison: 02-17-18 History: Chest pain, shortness of breath. FINDINGS: Single view of the chest shows a normal sized cardiomediastinal silhouette. There is a left subclavia n Mediport with its tip in the superior vena cava. No pneumothorax is seen. The previously seen right sided Mediport has been removed. There is no evidence of consolidation, mass, or pleural effusion. S jada stimulation device is seen in the lower thoracic spine. Hardware is seen in the cervical spine. IMPRESSION: No evidence of acute cardiopulmonary disease. POS: [facility]
--- NOTE | 2018-06-19 11:04 | OP ---
DATE OF PROCEDURE: 06/19/2018 PREOPERATIVE DIAGNOSIS: Dysfunctional MediPort. SURGEON: Moisés Araya M.D. PROCEDURE PERFORMED: Removal and replacement of MediPort. INDICATIONS: A 62-year-old female who has multiple medical problems requires IV therapy frequently, has a MediPort for access, but it clotted. FINDINGS: Good backflow of venous blood. J-wire threaded easily, left subclavian. PROCEDURE: After informed consent was obtained, the patient was taken to the operating room and give n general mask anesthesia, placed in the supine position. Her chest and neck were prepped and draped in usual fashion. Local anesthesia infiltrated subcutaneously and deep left subclavian. Good backf low of venous blood. J-wire threaded easily. Fluoroscopy was used, showed that the wire was going i nto the superior vena cava. Skin and subcutaneous anesthetized. A transverse chest wall incision wa s performed. The subcu divided sharply and a pocket created sharply utilizing electrocautery on the chest wall. The tunneling device used to connect the two incisions. The catheter brought through th e tunnel and connected to the MediPort. The system was flushed with heparinized saline. The MediPor t was secured to the chest wall with 2-0 Prolene suture. The catheter was cut to size and the peel-a way introducer inserted over the wire. The wire was removed. The catheter inserted through the peel -away introducer and the peel-away introducer removed. The fluoroscopy was used and showed that the catheter was going up the neck, so I had to cut the tubing at the MediPort, rewire it, remove the old tubing, got the wire down into the superior vena cava. A new catheter brought through the tunnel. It was then connected to the MediPort. MediPort secured with a 2-0 Prolene suture. At this time, th e peel-away introducer was then inserted over the wire. Fluoroscopy used, showed it was going on the right spot. Then the wire was removed. The catheter advanced through the peel-away introducer, aga in fluoroscopy showed it was going down the right spot. Then the peel-away introducer removed and it remained in the right spot. Then the system was accessed with Radford needle, aspirated, good backflo w of venous blood, flushed with saline. Subcutaneous reapproximated with interrupted 3-0 Vicryl. Sk in closed with a running subcuticular 4-0 Rapide. I then moved to the left side. Skin and subcutane ous anesthetized with local anesthesia. A transverse incision performed through the old scar. The s ubcu divided sharply. The MediPort removed. The catheter removed intact. Hemostasis assured with e lectrocautery. Subcutaneous reapproximated with interrupted 3-0 Vicryl. Skin closed with a running subcuticular 4-0 Rapide. Steri-Strips applied. Sterile bandage applied. The patient tolerated the procedure well and was transferred to recovery in good condition. Sponge and needle count verified c orrect x2.
[2018-06-19] MEDS ORDERED: Ondansetron PF 4 MG/2 ML Vial ONE (17:14)
[2018-06-19] MEDS ORDERED: PROPOFOL 200 MG/20 ML VIAL ONE (17:14)
[2018-06-19] MEDS ORDERED: PHENYLEPHRINE-NS 100 MCG/ML 10 ML SYRINGE ONE (17:14)
[2018-06-19] MEDS ORDERED: Lidocaine 1% PF 5 ML VIAL ONE (17:14)
== END 2018-06-19 10:28 | disposition home or self-care (01) ==
LOC: SDC 05:53
PROVIDERS: ATTEND Surgery
PROC: 0JH63XZ Insertion of Tunneled Vascular Access Device into Chest Subcutaneous Tissue and Fascia, Percutaneous Approach (ICD-10-PCS; principal; 2018-06-19)
PROC: 0JPT3XZ Removal of Tunneled Vascular Access Device from Trunk Subcutaneous Tissue and Fascia, Percutaneous Approach (ICD-10-PCS; principal; 2018-06-19)
PROC: 02HV33Z Insertion of Infusion Device into Superior Vena Cava, Percutaneous Approach (ICD-10-PCS; principal; 2018-06-19)
PROC: 02PY33Z Removal of Infusion Device from Great Vessel, Percutaneous Approach (ICD-10-PCS; principal; 2018-06-19)
PROC: B518ZZA Fluoroscopy of Superior Vena Cava, Guidance (ICD-10-PCS; principal; 2018-06-19)
DX: T82.594A Other mechanical complication of infusion catheter, initial encounter (principal); M96.1 Postlaminectomy syndrome, not elsewhere classified; I10 Essential (primary) hypertension; K21.9 Gastro-esophageal reflux disease without esophagitis; M48.02 Spinal stenosis, cervical region; M50.13 Cervical disc disorder with radiculopathy, cervicothoracic region; M47.12 Other spondylosis with myelopathy, cervical region; D64.9 Anemia, unspecified; Z87.891 Personal history of nicotine dependence; Z88.6 Allergy status to analgesic agent; Z88.5 Allergy status to narcotic agent; Z88.8 Allergy status to other drugs, medicaments and biological substances; Z79.899 Other long term (current) drug therapy
CPT/HCPCS: 71045; 80053; 85025; 96374; C1788; J0670; J1642; J1956; J2001; J2250; J2405; J2704; J3010

== ENCOUNTER 2018-11-29 10:10 | Outpatient (CLI) | payer BC ==
--- NOTE | 2018-11-29 10:30 | RAD ---
EXAM: Two views chest PROVIDED CLINICAL HISTORY: Dyspnea COMPARISON: 06/19/2020 FINDINGS: Cardiac and mediastinal silhouette appears within normal limits. Lungs appear free of significant opa city. No pleural fluid or pneumothorax apparent. Emphysematous changes are redemonstrated. Left sided implanted port, cervical degenerative change and dorsal column stimulator redemonstrated. IMPRESSION: No evidence for an acute cardiopulmonary process.
== END 2018-11-29 10:11 | disposition home or self-care (01) ==
LOC: BICRAD 10:10
PROVIDERS: ATTEND Internal Medicine Pulmonary Disease
DX: R06.00 Dyspnea, unspecified (principal)
CPT/HCPCS: 71046

== ENCOUNTER 2018-12-09 15:02 | Emergency (ER) | payer BC ==
[~2018-12-09 15:02] MED LIST: ISOVUE-370 76%-LOCM 1 ML ONE
[2018-12-09] MEDS ORDERED: Ondansetron PF 4 MG/2 ML Vial ONE ×2 (15:48→18:59)
[2018-12-09 15:58] LABS: #Eosinphils 0.2 thou/uL (0.0-0.7); #Lymphocytes 2.5 thou/uL (1.20-3.40); #Monocytes 0.7 thou/uL (0.11-0.59); #Neutrophils 5.2 thou/uL (1.40-6.50); %Basophils 0.5 % (0.0-1.0); %Eosinophils 2.7 % (0.0-10.0); %Lymphocytes 28.8 % (21.0-51.0); %Monocytes 8.5 % (0.0-10.0); %Neutrophils 59.6 % (42.0-75.0); Hemoglobin 11.5 g/dL (12.0-16.0); Mean Corpuscular HGB CONC 32.4 g/dL (32.0-36.0); Mean Corpuscular Hemoglobin 29.9 pg (27.0-31.0); Mean Corpuscular Volume 92.2 fL (78.0-98.0); Mean Platelet Volume 7.1 fL (7.4-10.4); Platelet Count 399 thou/uL (130-400); RBC Distribution Width 12.8 % (11.5-14.5); Red Blood Cell (RBC) Count 3.85 mill/uL (4.20-5.40); White Blood Cell (WBC) Count 8.7 thou/uL (4.8-10.8)
[2018-12-09 16:19] LABS: ALT (SGPT) 15 U/L (8-55); AST (SGOT) 16 U/L (5-34); Albumin 3.5 g/dL (3.4-4.8); Alkaline Phosphatase 104 U/L (40-150); Anion Gap 12 mmol/L (10-20); BUN (Urea Nitrogen) 26 mg/dL (9.8-20.1); Bilirubin, Total 0.3 mg/dL (0.2-1.2); Calc. Creatinine Clearance 0 mL/min (70-130); Calcium 9.4 mg/dL (7.8-10.44); Carbon Dioxide 24 mmol/L (23-31); Chloride 107 mmol/L (98-107); Estimated GFR-MDRD 45; Globulin 3.6 g/dL (2.4-3.5); Glucose 112 mg/dL (80-115); Lipase 53 U/L (8-78); Protein, Total 7.1 g/dL (6.0-8.3); Sodium 138 mmol/L (136-145)
--- NOTE | 2018-12-09 17:55 | CT ---
CONTRAST ENHANCED CT IMAGES OF THE ABDOMEN AND PELVIS 12/09/18 HISTORY: 63-year-old with history of Crohn's disease. History of colostomy with abdominal pain. Contrast enhanced CT images of the abdomen and pelvis is obtained. Oral contrast was not given. The lung bases are unremarkable. The liver and spleen contain calcified granulomas. The gallbladder is contracted. The small bowel dem onstrates moderate dilatation which has developed. Some of the small bowel loops measure up to 3.4 cm . The colostomy site is visualized. Proximal to the colostomy, the loops of small bowel contain some fecalized debris. This may represent some stool which is resulting in partial impaction at this level . Proximally, the small bowel loops are dilated with air fluid levels. No definite evidence of an abscess seen. Renal calculi seen in the right kidney. Adrenal glands are unremarkable. Atherosclerotic calcifications seen in the abdominal aorta. A residual distal colonic pouch is visualized. Surgical henry seen along the colectomy site. More d istally, the residual rectum is unremarkable. IMPRESSION: Small bowel distention with fecal debris seen in the distal aspect of the small bowel proximal to th e ostomy site. POS: [facility]
[2018-12-09] MEDS ORDERED: Morphine 4 MG/ML VIAL ONE (18:59)
[2018-12-09] MEDS ORDERED: Benzocaine 20% Spray 60 ML CAN ONE (19:16)
[2018-12-09] MEDS ORDERED: Lorazepam 2 MG/ML VIAL ONE (20:09)
== END 2018-12-09 21:16 | disposition short-term general hospital (02) ==
LOC: ERS 15:02
DX: K56.609 Unspecified intestinal obstruction, unspecified as to partial versus complete obstruction (principal); J44.9 Chronic obstructive pulmonary disease, unspecified; I10 Essential (primary) hypertension; Z87.891 Personal history of nicotine dependence; Z79.899 Other long term (current) drug therapy
CPT/HCPCS: 36415; 74177; 80053; 83690; 85025; 96374; 96375; 96376; J2060; J2270; J2405; Q9966

== ENCOUNTER 2021-12-16 10:44 | Outpatient (CLI) | payer MEDICARE | END 2021-12-16 10:45 | disposition home or self-care (01) | LOC: BICMAMMO 10:44 | PROVIDERS: ATTEND Nurse Practitioner Family | DX: Z12.31 Encounter for screening mammogram for malignant neoplasm of breast (principal) | CPT/HCPCS: 77063; 77067 ==

== ENCOUNTER 2022-12-06 13:24 | Observation (INO) | payer MEDICARE ==
[2022-12-06 14:33] LABS: #Basophils 0.1 thou/uL (0.0-0.2); #Eosinphils 0.1 thou/uL (0.0-0.7); #Lymphocytes 2.9 thou/uL (1.20-3.40); #Monocytes 0.7 thou/uL (0.11-0.59); #Neutrophils 5.5 thou/uL (1.40-6.50); %Basophils 0.7 % (0.0-1.0); %Eosinophils 1.1 % (0.0-10.0); %Lymphocytes 30.8 % (21.0-51.0); %Neutrophils 59.4 % (42.0-75.0); Hemoglobin 14.5 g/dL (12.0-16.0); Mean Corpuscular HGB CONC 34.1 g/dL (32.0-36.0); Mean Corpuscular Hemoglobin 32.1 pg (27.0-31.0); Mean Corpuscular Volume 94.3 fl (78.0-98.0); Mean Platelet Volume 7.1 fL (7.4-10.4); Platelet Count 294 10x3/uL (130-400); White Blood Cell (WBC) Count 9.3 10x3/uL (4.8-10.8)
[2022-12-06 15:00] LABS: ALT (SGPT) 14 U/L (8-55); AST (SGOT) 16 U/L (5-34); Albumin 4.1 g/dL (3.4-4.8); Alkaline Phosphatase 83 U/L (40-110); Anion Gap 12 mmol/L (10-20); BUN (Urea Nitrogen) 13 mg/dL (9.8-20.1); Bilirubin, Total 1.1 mg/dL (0.2-1.2); Calc. Creatinine Clearance 0 mL/min (70-130); Calcium 9.8 mg/dL (7.8-10.44); Carbon Dioxide 24 mmol/L (23-31); Chloride 104 mmol/L (98-107); Estimated GFR 74; Globulin 3.4 g/dL (2.4-3.5); Glucose 93 mg/dL (80-115); Lipase 28 U/L (8-78); Potassium 4.3 mmol/L (3.5-5.1); Protein, Total 7.5 g/dL (5.8-8.1); Sodium 136 mmol/L (136-145)
[2022-12-06 15:29] LABS: Bilirubin Negative (Negative); Blood, Urine Negative (Negative); Clarity Clear (Clear); Glucose, Urine (Dipstick) Normal (Negative); Ketone, Urine Negative (Negative); Leukocyte 250 Leu/uL (Negative); Nitrite Negative (Negative); Protein, Urine (Dipstick) Negative (Neg-Trace); Specific Gravity, Urine 1.018 (1.002-1.036); Urobilinogen Normal mg/dL (Less than 2)
[2022-12-06 15:30] LABS: Bacteria/HPF None Seen HPF (None Seen); RBC/HPF 0-3 HPF (0-3); Squamous Epithelial 0-3 HPF (0-3)
[2022-12-06] MEDS ORDERED: Clopidogrel Bisulfate 75 MG TAB ONE (15:43)
[2022-12-06] MEDS ORDERED: Nitroglycerin 2% Ointment 1 INCH/1 GM Packet ONE (15:43)
[2022-12-06] MEDS ORDERED: Nitroglycerin 0.4 MG TAB 1 EACH ONE (15:43)
[2022-12-06] MEDS ORDERED: Amlodipine 5 MG TAB ONE (17:15)
[2022-12-06] MEDS ORDERED: HYDROcodone/Acetaminophen 7.5/325 mg Tablet PO PRN (17:18)
[2022-12-06] MEDS ORDERED: Melatonin 3 MG TAB PO PRN (17:22)
[2022-12-06] MEDS ORDERED: Amlodipine 10 MG TAB PO SCH (17:30)
[2022-12-06] MEDS ORDERED: HYDROcodone/Acetaminophen 10/325 mg Tablet ONE (17:35)
[2022-12-06] MEDS: HYDROcodone/Acetaminophen 10/325 mg Tablet PO SCH (17:37)
[2022-12-06] MEDS ORDERED: Communication Order-Pharmacy FS SCH (17:45)
[2022-12-06 18:18] LABS: Troponin I Less than 0.010 ng/mL (< 0.028)
[2022-12-06] MEDS ORDERED: Atorvastatin Calcium 40 MG TAB PO SCH (21:00)
[2022-12-06 21:29] LABS: Troponin I Less than 0.010 ng/mL (< 0.028)
[2022-12-06] MEDS ORDERED: Albuterol 200 PUFF (6.7GM INHALER) INH PRN (22:15)
[2022-12-06] MEDS ORDERED: Diphenoxylate HCl/Atropine Tablet PO SCH (22:30)
[2022-12-06] MEDS ORDERED: Melatonin 3 MG TAB PO SCH (22:45)
[2022-12-07 00:10] VITALS: BMI 25.7
[2022-12-07 05:11] LABS: #Basophils 0.1 thou/uL (0.0-0.2); #Eosinphils 0.1 thou/uL (0.0-0.7); #Lymphocytes 3.4 thou/uL (1.20-3.40); #Monocytes 0.8 thou/uL (0.11-0.59); #Neutrophils 3.6 thou/uL (1.40-6.50); %Basophils 1.4 % (0.0-1.0); %Eosinophils 1.8 % (0.0-10.0); %Lymphocytes 42.1 % (21.0-51.0); %Monocytes 10.4 % (0.0-10.0); %Neutrophils 44.4 % (42.0-75.0); Hemoglobin 14.5 g/dL (12.0-16.0); Mean Corpuscular HGB CONC 33.7 g/dL (32.0-36.0); Platelet Count 314 10x3/uL (130-400); Red Blood Cell (RBC) Count 4.53 mill/uL (4.20-5.40)
[2022-12-07 05:34] LABS: ALT (SGPT) 15 U/L (8-55); AST (SGOT) 13 U/L (5-34); Albumin 4.1 g/dL (3.4-4.8); Alkaline Phosphatase 82 U/L (40-110); Anion Gap 15 mmol/L (10-20); BUN (Urea Nitrogen) 13 mg/dL (9.8-20.1); Bilirubin, Total 1.3 mg/dL (0.2-1.2); Calc. Creatinine Clearance 81 mL/min (70-130); Carbon Dioxide 23 mmol/L (23-31); Chloride 103 mmol/L (98-107); Estimated GFR 77; Globulin 3.5 g/dL (2.4-3.5); Glucose 95 mg/dL (80-115); Potassium 4.6 mmol/L (3.5-5.1); Protein, Total 7.6 g/dL (5.8-8.1); Sodium 136 mmol/L (136-145)
[2022-12-07 05:35] LABS: Hemoglobin A1c 5.1 % (4.0-6.0)
[2022-12-07] MEDS ORDERED: Ondansetron PF 4 MG/2 ML Vial IVP PRN (05:40)
[2022-12-07] MEDS ORDERED: Mometasone 100 MCG/Formoterol 5 MCG 120 PUFF INHALER INH SCH (06:30)
[2022-12-07] MEDS ORDERED: Lidocaine 1% (PF) 30 ML VIAL ONE (06:31)
[2022-12-07] MEDS: HYDROcodone/Acetaminophen 10/325 mg Tablet PO SCH (06:48)
[2022-12-07] MEDS ORDERED: Midazolam HCl 2 mg/2 ml Vial ONE (06:56)
[2022-12-07] MEDS ORDERED: fentaNYL 50 mcg/mL 1 mL Vial ONE (06:56)
[2022-12-07] MEDS ORDERED: Sodium Chloride 0.9% 200 ML IV PRN (08:25)
[2022-12-07] MEDS ORDERED: Nitroglycerin 0.4 MG TAB (25 Tab Bottle) SL PRN (08:25)
[2022-12-07] MEDS ORDERED: Clopidogrel Bisulfate 300 MG TAB PO SCH (08:45)
[2022-12-07] MEDS ORDERED: Amlodipine 10 MG TAB PO SCH ×2 (09:00)
[2022-12-07] MEDS ORDERED: Famotidine 20 MG TAB PO SCH (09:00)
[2022-12-07] MEDS ORDERED: Diphenoxylate HCl/Atropine Tablet PO SCH (09:00)
[2022-12-07] MEDS ORDERED: Losartan 25 MG TAB PO SCH (09:00)
[2022-12-07] MEDS ORDERED: Magnesium Oxide 250 MG TAB PO SCH (09:00)
[2022-12-07 11:57] VITALS: BP 109/56; TEMP 97.9
[2022-12-07] MEDS ORDERED: Iopamidol 370 76% 100 ML VIAL ONE (12:00)
[2022-12-07] MEDS ORDERED: Melatonin 3 MG TAB PO SCH (21:00)
[2022-12-08] MEDS ORDERED: Clopidogrel Bisulfate 75 MG TAB PO SCH (09:00)
== END 2022-12-07 15:03 | disposition home or self-care (01) ==
LOC: ERS 13:24 → 2SW 17:14
PROVIDERS: ADMIT Internal Medicine; ATTEND Internal Medicine
PROC: 4A023N7 Measurement of Cardiac Sampling and Pressure, Left Heart, Percutaneous Approach (ICD-10-PCS; principal; 2022-12-07)
PROC: B2111ZZ Fluoroscopy of Multiple Coronary Arteries using Low Osmolar Contrast (ICD-10-PCS; 2022-12-07)
DX: R07.89 Other chest pain (principal); I25.10 Atherosclerotic heart disease of native coronary artery without angina pectoris; J44.9 Chronic obstructive pulmonary disease, unspecified; K50.90 Crohn's disease, unspecified, without complications; I10 Essential (primary) hypertension; K21.9 Gastro-esophageal reflux disease without esophagitis; E78.5 Hyperlipidemia, unspecified; E55.9 Vitamin D deficiency, unspecified; Z87.891 Personal history of nicotine dependence; Z79.899 Other long term (current) drug therapy; Z88.1 Allergy status to other antibiotic agents; Z88.5 Allergy status to narcotic agent; Z88.8 Allergy status to other drugs, medicaments and biological substances; Z93.3 Colostomy status; Z96.82 Presence of neurostimulator
CPT/HCPCS: 71045; 80053 ×2; 80061; 82550; 83036; 83690; 84484 ×2; 85025 ×2; 93005; 93458; 94640; 94664; 94760; 96374; 99285; C1769; G0378 ×3; J3010; 36415; 81003; 81015; 99152; J2001; J2250; J2405; Q9967

== ENCOUNTER 2023-05-12 12:18 | Outpatient (CLI) | payer MEDICARE | END 2023-05-12 12:19 | disposition home or self-care (01) | LOC: BICRAD 12:18 | PROVIDERS: ATTEND Anesthesiology Pain Medicine | DX: M47.816 Spondylosis without myelopathy or radiculopathy, lumbar region (principal); M41.9 Scoliosis, unspecified | CPT/HCPCS: 72120 ==